=== PATIENT | male | born 1985 | race Caucasian/White ===

== ENCOUNTER 2018-06-06 16:57 | Emergency (ER) | payer SELFPAY ==
--- NOTE | 2018-06-06 17:09 | Emergency Department Report ---
Chief Complaint: Extremity Injury, Lower Stated Complaint: RT LEG NAIL/PAIN Time Seen by Provider: 06/06/18 17:05 - HPI History of Present Illness: This is a 32 y.o. male that presents with a nail in right lateral knee. Patient was working and accidentally hit right knee with a nail gun 2 hours ago. - Exam Vital Signs: Vital Signs 06/06/18 17:02 Temperature 98.3 F Pulse Rate 91 H Respiratory 91 H Rate Blood Pressure 150/87 O2 Sat by Pulse 98 Oximetry MSE screening note: Focused history and physical exam performed. Due to findings the following was ordered: XR right knee Main ED ED Disposition for MSE Condition: Stable
[2018-06-06] MEDS ORDERED: TORADOL IM ONE (17:13)
[2018-06-06] MEDS ORDERED: DILAUDID IM ONE (17:13)
[2018-06-06] MEDS ORDERED: XYLOCAINE 2% INFILTRATI ONE (17:43)
--- NOTE | 2018-06-06 18:00 | XRay Report ---
PROCEDURE: XR KNEE 3V RT TECHNIQUE: Frontal view right knee HISTORY: nail in right lateral COMPARISONS: None FINDINGS: A nail is projected in the lateral soft tissues extending into the proximal metaphysis and epiphysis of the tibia on this single frontal view provided. There appears to be sparing of the articular surface. The bony structures are otherwise unremarkable. IMPRESSION: 1. Nail projected in the lateral soft tissues extending into the proximal metaphysis and epiphysis of the tibia on this single frontal view provided. This document is electronically signed by Jaida Quintero MD., June 06 2018 05:58:12 PM ET
[2018-06-06] MEDS ORDERED: BOOSTRIX IM ONE (18:10)
[2018-06-06] MEDS ORDERED: ANCEF IM ONE (18:10)
--- NOTE | 2018-06-06 18:13 | Emergency Department Report ---
ED Extremity Problem HPI - General Chief complaint: Extremity Injury, Lower Stated complaint: RT LEG NAIL/PAIN Time Seen by Provider: 06/06/18 17:05 Source: patient Mode of arrival: Wheelchair Limitations: No Limitations - History of Present Illness Initial comments: Patient is a 32-year-old male who approximately 2 hours ago accidentally shot his right lower extremity with a nail gun. The nail seems to be embedded on the lateral aspect is his right knee angled in a downward position. Patient is unable to completely straighten his leg secondary to pain. Patient states pain is 10 out of 10 in severity. Severity scale (0 -10): 10 - Related Data Previous Rx's Medication Instructions Recorded Last Taken Type Amoxicillin/Potassium Clav 1 each PO BID #14 tablet 06/06/18 Unknown Rx [Augmentin 875-125 Tablet] HYDROcodone/ACETAMINOPHEN 1 each PO Q6HR PRN #15 tablet 06/06/18 Unknown Rx [Hydrocodone-Acetamin 5-325 mg] Ibuprofen [Ibu] 800 mg PO Q8H PRN #20 tablet 06/06/18 Unknown Rx Allergies Allergy/AdvReac Type Severity Reaction Status Date / Time No Known Allergies Allergy Unverified 06/06/18 16:58 ED Review of Systems ROS: Stated complaint: RT LEG NAIL/PAIN Other details as noted in HPI Comment: All other systems reviewed and negative ED Past Medical Hx - Past Medical History Previous Medical History?: No - Surgical History Past Surgical History?: No - Social History Smoking Status: Never Smoker Substance Use Type: None - Medications Home Medications: Home Medications Medication Instructions Recorded Confirmed Last Taken Type Amoxicillin/Potassium Clav 1 each PO BID #14 tablet 06/06/18 Unknown Rx [Augmentin 875-125 Tablet] HYDROcodone/ACETAMINOPHEN 1 each PO Q6HR PRN #15 tablet 06/06/18 Unknown Rx [Hydrocodone-Acetamin 5-325 mg] Ibuprofen [Ibu] 800 mg PO Q8H PRN #20 tablet 06/06/18 Unknown Rx ED Physical Exam - General Limitations: No Limitations General appearance: alert, in no apparent distress - Head Head exam: Present: atraumatic, normocephalic - Eye Eye exam: Present: normal appearance - ENT ENT exam: Present: mucous membranes moist - Neck Neck exam: Present: normal inspection - Respiratory Respiratory exam: Present: normal lung sounds bilaterally. Absent: respiratory distress - Cardiovascular Cardiovascular Exam: Present: regular rate, normal rhythm. Absent: systolic murmur, diastolic murmur, rubs, gallop - GI/Abdominal GI/Abdominal exam: Present: soft, normal bowel sounds - Rectal Rectal exam: Present: deferred - Extremities Exam Extremities exam: Present: normal inspection - Expanded Lower Extremity Exam Right 1 - Patient has a nail embedded in this area angled in a downward orientation - Back Exam Back exam: Present: normal inspection - Neurological Exam Neurological exam: Present: alert, oriented X3 - Psychiatric Psychiatric exam: Present: normal affect, normal mood - Skin Skin exam: Present: warm, dry, intact, normal color. Absent: rash ED Course Vital Signs 06/06/18 17:02 Temperature 98.3 F Pulse Rate 91 H Respiratory 91 H Rate Blood Pressure 150/87 O2 Sat by Pulse 98 Oximetry - Procedure Description Procedures done: Area was cleaned with Betadine. I was able to bathe the area of insertion with 2% lidocaine for some pain control. Using vice post production assistant and was able to accounts supervisor the end of the nail and the nail was removed. Patient was able to move his leg full range of motion afterwards. The wound was dressed. ED Medical Decision Making - Radiology Data Radiology results: image reviewed (x-ray shows a foreign body consistent with a nail that appears to be inserted into the tibia) Critical care attestation.: If time is entered above; I have spent that time in minutes in the direct care of this critically ill patient, excluding procedure time. ED Disposition Clinical Impression: Foreign body, Open fracture Disposition: -01 TO HOME OR SELFCARE Is pt being admited?: No Does the pt Need Aspirin: No Condition: Stable Instructions: Soft Tissue Foreign Body (ED) Referrals: PANDA KNAPP MD [Staff Physician] - 3-5 Days Time of Disposition: 18:16 Print Language: MALTESE
[2018-06-06] MEDS ORDERED: XYLOCAINE 1% MPF 5 mL ONE (18:39)
[2018-06-06 19:09] VITALS: BP 124/72
== END 2018-06-06 19:09 | disposition home or self-care (01) ==
LOC: ED 16:57
DX: S82.201B Unspecified fracture of shaft of right tibia, initial encounter for open fracture type I or II (principal); S80.251A Superficial foreign body, right knee, initial encounter; W34.09XA Accidental discharge from other specified firearms, initial encounter; Y93.89 Activity, other specified; Y92.89 Other specified places as the place of occurrence of the external cause; Y99.8 Other external cause status
CPT/HCPCS: 10120; 73562; 90471; 90715; 96372; 99283; J0690; J1170; J1885